=== PATIENT | male | born 1950 | race Caucasian/White ===

== ENCOUNTER 2017-04-22 02:35 | Emergency (ER) | payer MEDICARE ==
[~2017-04-22] VITALS: Ht 149.9 cm; Wt 59.0 kg
[2017-04-22] MEDS ORDERED: DEXA4TAB PO (02:54)
[2017-04-22] MEDS ORDERED: LENA25CA PO (02:54)
[2017-04-22] MEDS ORDERED: HYD25 PO (02:54)
[2017-04-22] MEDS ORDERED: LEVO150 PO (02:54)
[2017-04-22] MEDS ORDERED: TEST5GEL TP (02:54)
[2017-04-22] MEDS ORDERED: VITAD1000 PO (02:54)
[2017-04-22] MEDS ORDERED: VALA500T38 PO (02:54)
[2017-04-22] MEDS ORDERED: DEXAMETHASONE SOD PHOS 4 MG/ML 5 ML VIAL IM ONE (03:15)
[2017-04-22] MEDS ORDERED: MORPHINE SULFATE 4 MG/ML SYRINGE IM ONE (03:15)
[2017-04-22 04:43] VITALS: BP 137/81
== END 2017-04-22 05:07 | disposition home or self-care (01) ==
LOC: EMS 02:37
DX: M54.5 Low back pain (principal); Z77.22 Contact with and (suspected) exposure to environmental tobacco smoke (acute) (chronic)
CPT/HCPCS: 96372; 99284; J1100; J2270